=== PATIENT | male | born 2000 | race Caucasian/White ===

== ENCOUNTER 2022-03-07 13:03 | Outpatient (REF) | payer OTHER, SELFPAY ==
--- NOTE | ~2022-03-07 | XR_ITS ---
EXAMINATION: XR HAND, RIGHT CLINICAL INFORMATION: Right hand pain COMPARISON: None TECHNIQUE: PA, lateral, and oblique views of the right hand. FINDINGS: There is an essentially nondisplaced fracture involving the distal right fifth metacarpal with some mild volar angulation distal fracture fragment. No dislocation is evident. Adjacent soft tissue edema is seen. XR/XR hand RT min 3V IMPRESSION: Fracture distal right fifth metacarpal.
== END 2022-03-07 13:04 | disposition home or self-care (01) ==
LOC: HO.HMGCX 13:03
PROVIDERS: PCP Internal Medicine; Visit Provider Physician Assistant
DX: M79.641 Pain in right hand (principal)
CPT/HCPCS: 73130